=== PATIENT | female | born 1975 | race Caucasian/White ===

== ENCOUNTER → 2017-11-01 15:41 | Outpatient (CLI) | payer BC, SELFPAY ==
--- NOTE | 2017-11-01 14:30 | BRBX_PTH ---
PATIENT: LIZETTE BLEDSOE LOC: [facility] U#:[id number] AGE/SX: 49/F ROOM: RE11/01/[address]: Dr. Kim Monique MD : 1975 BED: DIS: SPEC #: [id number] RECD: 11/01/17 15:27 STATUS: SHASTA MAGALIE #: [id number] TACO: 11/01/17 14:[address]: Kim Monique DEPT: SURGICAL PATHOLOGY RECD BY: Demario Bales ENTERED: 11/02/17 08:57 SP TYPE: BREAST BX OTHR DR: Dr. Dc Coronel MD Tissues: Left breast, NOS Procedures: Surgery Specimen Level IV HEADER OPERATION: Ultrasound-guided left breast needle core biopsy PRE-OP DIAGNOSIS: Abnormal mammogram breast ultrasound, left TISSUE SUBMITTED: Left breast needle core biopsy ISCHEMIC TIME: 3 minutes MICROSCOPIC DIAGNOSIS Left breast, ultrasound-guided needle core biopsy: Benign epithelial cyst with metaplastic change. No evidence of malignancy. AM:zehra 11/05/17 MICROSCOPIC DESCRIPTION Slides are reviewed. GROSS DESCRIPTION Received in fixative is one container labeled with the patient's name and designated left breast biopsy. The specimen consists of multiple elongated fragments of baez-yellow fibroadipose tissue that in aggregate measure 2.5 x 1.5 x 0.1 cm. The entire specimen is submitted in one cassette. / SJ:zehra 11/02/17 TC:5 CPT: 66563
== END ==
PROVIDERS: Family Provider Family Medicine; PCP Family Medicine; Visit Provider Surgery
DX: R92.8 Other abnormal and inconclusive findings on diagnostic imaging of breast (principal)
CPT/HCPCS: 88305

== ENCOUNTER 2018-08-31 11:04 | Emergency (ER) | payer BC, SELFPAY ==
[2018-08-31 11:04] VITALS: PULSE 118; RESP 16; TEMP 36.8; O2SAT 98; BMI 31.9
--- NOTE | 2018-08-31 11:17 | CT_ITS ---
STUDY: CT BRAIN WITHOUT CONTRAST REASON FOR EXAM: Female, 42 years old. Headaches RADIATION DOSAGE (If Supplied By Facility): CTDIvol = ( 44.99 ) mGy, DLP = ( 779.24 ) mGycm TECHNIQUE: Transaxial CT imaging of the brain was performed without administration of intravenous contrast material. Individualized dose optimization techniques were used for this CT. COMPARISON: None. FINDINGS: Normal soft tissue structures. Normal calvarium. Midline interhemispheric calcifications along the anterior interhemispheric fissure seen. Normal size ventricles and extra-axial spaces for the patient's age. Normal white matter tracts of the cerebral hemispheres. Normal basal ganglia and thalami. Normal brainstem. Normal cerebellum. There is no intracranial hemorrhage. There are no findings of an acute ischemic infarction. Normal visualized paranasal sinuses. CT/Brain/Head without Contrast IMPRESSION: No evidence for acute intracranial hemorrhage, mass effect or acute large territory infarcts. No acute intracranial findings Electronically Signed: Jerzy Briceño, at 12:14 EST Tel , Service support ,
[2018-08-31] MEDS: 0.9% Normal Saline 1,000 ML 1000 ML IV (11:31)
[2018-08-31 11:32] VITALS: BP 147/106; PULSE 96; RESP 15; O2SAT 97
[2018-08-31] MEDS: DiphenhydrAMINE 50 MG/ML Syringe 25 MG IV (11:32)
[2018-08-31] MEDS: Ketorolac 30 MG/ML Syringe IV (11:32)
[2018-08-31] MEDS: Metoclopramide 10 MG/2 ML Vial IV (11:32)
[2018-08-31 11:34] LABS: Absolute Lymphocyte Count 1.87 X10^3/ul (0.83-4.51); Basophil# 0.04 X10^3/uL; Basophil% 0.7 % (0-1); Eosinophils% 3.7 % (0-5); Hematocrit 41.8 % (37-47); Hemoglobin 13.3 g/dl (12.0-15.0); Lymphocyte # 1.87 X10^3/ul (4.0); Lymphocyte % 34.4 % (19-41); Mean Corp Hgb Conc 31.8 g/gl (32-36); Mean Corpuscular Hgb 27.3 pg (27.0-32.0); Mean Corpuscular Volume 85.7 fL (81-99); Mean Platelet Vol. 8.9 fl (6.2-12.0); Monocyte# 0.29 X10^3/uL; Monocyte% 5.3 % (0-10); Neutrophil # 3.03 X10^3/uL (2.7-7.7); Neutrophil % 55.9 % (47-70); Platelet Count 321 K/mm3 (150-450); RBC Distribution Width CV 14.6 % (11.6-14.6); RBC Distribution Width SD 45.7 fl (35.1-43.9); Red Blood Count 4.88 M/mm3 (4.2-5.4); White Blood Count 5.4 K/mm3 (4.4-11.0)
[2018-08-31 11:35] LABS: POSITIVE COUNT NO; POSITIVE DIFFERENTIAL NO; POSITIVE MORPHOLOGY NO
[2018-08-31 11:44] LABS: Anion Gap 7 (5-15); BUN 12 mg/dL (7-18); BUN/Creat Ratio 14.7 RATIO (10-20); Chloride 101 mmol/L (98-107); Creatinine, Serum 0.82 mg/dL (0.55-1.02); EST Glomerular Filtration Rate 82 mL/min (>60); Est Glom Filt Rate - Afr Amer 100 mL/min (>60); Estimated Creatinine Clearance 78.75 ml/min; Glucose 100 mg/dL (74-106); Potassium 3.7 mmol/L (3.5-5.1); Sodium Level 138 mmol/L (136-145)
--- NOTE | 2018-08-31 12:24 | ED.DCSUM_ITS ---
- ER Visit Summary Date of Service: 08/31/18 Chief Complaint: [Headache] History of Present Illness: The patient is a 42 F [presents with a headache that started initially 3 days ago. Patient states that initially her headache was more frontal and felt like a sinus type headache but she did not have any fever or sinus drainage. Patient states the headache then seem to moved to the right side of her head. Patient has a continuous discomfort with intermittent sharp stabbing pains to the right side of her head. Patient had some nausea initially when her symptoms started. Patient not had any vomiting. She has not had any falls or head injuries. She has no concerns for carbon monoxide in the home and nobody else at home has headaches. Patient denies any photophobia. Patient does have history of a pituitary tumor and states that a year and a half ago was diagnosed and had an MRI and a CT scan at that time and her chest following it. No family history of brain aneurysms or tumors otherwise.] Physical Examination: [HEENT-PERRLA, EOMI. Cranial nerves II through XII gr ossly intact. TMs clear. Mucous membranes moist. No adenopathy. Cardiovascular-regular rate and rhythm without murmur or ectopy Lungs-clear to auscultation, chest wall stable without crepitus or subcu emphysema Abdomen-normoactive bowel sounds, soft, nontender, no rebound or rigidity, no peritoneal signs. Neuro exam-finger to nose and heel carrillo testing within normal limits, negative Romberg, negative pronator drift, fundi benign Extremities-intact ?4, normal range of motion, normal pulses, atraumatic] Test Results: [CBC with differential is normal. Chemistries were normal. CT scan of the brain without contrast was unremarkable.] Emergency Department Course and Treatment: [Patient was given a liter normal saline fluid bolus as well as Reglan, Benadryl, and Toradol, and her headache resolved.] Treatment Plan: [Patient to follow-up with her primary care physician 3-5 days] Disposition: [Discharged home in stable condition] Impression: [Cephalgia-resolved] This note was generated with [employer] software. It may contain incorrect words, spelling, and punctuation that were not noted in review of the chart prior to signing ED Disposition - Plan for ED Patient: Chief Complaint: Headache Referrals: Dc Coronel MD [Primary Care Provider] -
--- NOTE | 2018-08-31 12:25 | ED.DEP ---
ED Disposition - Plan for ED Patient: Chief Complaint: Headache Instructions: ED Cephalgia Unspecified Referrals: Dc Coronel MD [Primary Care Provider] - 3-5 Days
[2018-08-31 12:40] VITALS: BP 126/77; PULSE 94; RESP 14; O2SAT 95
--- OUTSIDE RECORDS SUMMARY | 2018-12-04 10:13 | XMS RPT_ITS ---
:1975 Author Organization OH[facility] Care Team Providers Name Role Phone PRIYANK NELSON Referring Unavailable REGI DEL RIO Referring Unavailable REGI DEL RIO S Referring Unavailable KIM MONIQUE Attending Unavailable KARLENE RIVERO Referring Unavailable KIM MONIQUE Attending Unavailable KARLENE RIVERO Referring Unavailable MARLY FISHER Attending Unavailable MARLY FISHER Referring Unavailable PRIYANK NELSON Attending Unavailable KARLENE RIVERO Referring Unavailable PRIYANK NELSON Referring Unavailable MARLY FISHER Attending Unavailable MARLY FISHER Referring Unavailable PRIYANK NELSON Referring Unavailable PRIYANK NELSON Attending Unavailable PRIYANK NELSON Referring Unavailable PRIYANK NELSON Referring Unavailable Karlene Rivero Primary Care Unavailable Guanako Bermeo Attending Unavailable Kim Monique Attending Unavailable Kim Monique Referring Unavailable Karlene Rivero Primary Care Unavailable REGI VASQUEZ CNP Attending Unavailable REGI VASQUEZ CNP Referring Unavailable Karlene Rivero Primary Care Unavailable PROBLEMS PROBLEMS DATE TYPE CONDITION / CODE ATTENDING STATUS SOURCE 06/04/2018 Active 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 / [facility] [place] D35.2(ICD-10) Repository 01/16/2018 Active Iron deficiency / NA Active [facility] E61.1(ICD-10) [facility] [place] Repository 01/16/2018 Active Restless legs NA Active [facility] syndrome / [facility] [place] G25.81(ICD-10) Repository 10/31/2017 Active Unknown / NA Active [facility] UNK(Unknown) [facility] [place] Repository 11/15/2011 Active Hypothyroidism, NA Active [facility] unspecified / [facility] [place] E03.9(ICD-10) Repository PROCEDURES PROCEDURES No Procedure Records FoundRESULTS RESULTS DISCHARGE INSTRUCTION Observed: 08/31/2018 Status: F Source: [place] 12:25 PM [facility] REPOSITORY [facility] Medical Records Department [address] [place] [address] Discharge Instruction 08/31/18 1225 MR#: [id number] Acct: [id number] Name: TIANA CARIAS Emmy Rep #: [id number] : 1975 42 From: Guanako Bermeo DO PCP: Karlene Rivero MD Status: REG ER ED Disposition - Plan for ED Patient: Chief Complaint: Headache Instructions: ED Cephalgia Unspecified Referrals: Karlene Rivero MD [Primary Care Provider] - 3-5 Days What to do if you have Problems For any increased pain, shortness of breath, bleeding, nausea or vomiting, chest pain, or any unexpected problems, contact your Primary Care Provider. Call [facility] ([phone]) or report to the closest Emergency Room. Call 911 if necessary. 08/31/18 1225 <Electronically signed by Guanako Bermeo DO> Date Guanako Bermeo DO Cosigner Signature (If Indicated): Date CC: Karlene Rivero MD EMERGENCY DEPARTMENT Observed: 08/31/2018 Status: F Source: [place] SUMMARY 12:24 PM [facility] REPOSITORY [facility] Medical Records Department [address] [place] [address] Emergency Department Summary 08/31/18 1222 MR#: [id number] Acct: [id number] Name: TIANA CARIAS Rep #: [id number] : 1975 42 From: Guanako Bermeo DO PCP: Karleen Rivero MD Status: REG ER - ER Visit Summary Date of Service: 08/31/18 Chief Complaint: [Headache] History of Present Illness: The patient is a 42 F [presents with a headache that started initially 3 days ago. Patient states that initially her headache was more frontal and felt like a sinus type headache but she did not have any fever or sinus drainage. Patient states the headache then seem to moved to the right side of her head. Patient has a continuous discomfort with intermittent sharp stabbing pains to the right side of her head. Patient had some nausea initially when her symptoms started. Patient not had any vomiting. She has not had any falls or head injuries. She has no concerns for carbon monoxide in the home and nobody else at home has headaches. Patient denies any photophobia. Patient does have history of a pituitary tumor and states that a year and a half ago was diagnosed and had an MRI and a CT scan at that time and her chest following it. No family history of brain aneurysms or tumors otherwise.] Physical Examination: [HEENT-PERRLA, EOMI. Cranial nerves II through XII grossly intact. TMs clear. Mucous membranes moist. No adenopathy. Cardiovascular-regular rate and rhythm without murmur or ectopy Lungs-clear to auscultation, chest wall stable without crepitus or subcu emphysema Abdomen-normoactive bowel sounds, soft, nontender, no rebound or rigidity, no peritoneal signs. Neuro exam-finger to nose and heel carrillo testing within normal limits, negative Romberg, negative pronator drift, fundi benign Extremities-intact 4, normal range of motion, normal pulses, atraumatic] Test Results: [CBC with differential is normal. Chemistries were normal. CT scan of the brain without contrast was unremarkable.] Emergency Department Course and Treatment: [Patient was given a liter normal saline fluid bolus as well as Reglan, Benadryl, and Toradol, and her headache resolved.] Treatment Plan: [Patient to follow-up with her primary care physician 3-5 days] Disposition: [Discharged home in stable condition] Impression: [Cephalgia-resolved] This note was generated with [employer] dictation software. It may contain incorrect words, spelling, and punctuation that were not noted in review of the chart prior to signing ED Disposition - Plan for ED Patient: Chief Complaint: Headache Referrals: Karlene Rivero MD [Primary Care Provider] - What to do if you have Problems For any increased pain, shortness of breath, bleeding, nausea or vomiting, chest pain, or any unexpected problems, contact your Primary Care Provider. Call [facility] ([phone]) or report to the closest Emergency Room. Call 911 if necessary. 08/31/18 1224 <Electronically signed by Guanako Bermeo DO> Date Guanako Bermeo DO Cosigner Signature (If Indicated): Date CC: Karlene Rivero MD CBC W/DIFF, AUTOMATED Collected: 08/31/2018 Status: F Source: [place] 11:25 AM [facility] REPOSITORY TYPE CODE TESTS RESULT OUT OF RANGE REFERENCE UNITS LAB L100.1000 4.4-11.0 K/mm3 Normal WBC 5.4 LAB L100.1200 4.2-5.4 M/mm3 Normal RBC 4.88 LAB L100.1300 12.0-15.0 g/dl Normal HGB 13.3 LAB L100.1400 37-47 % Normal HCT 41.8 LAB L100.1500 81-99 fL Normal MCV 85.7 LAB L100.1600 27.0-32.0 pg Normal MCH 27.3 LAB L100.1700 32-36 g/gl Low MCHC 31.8 LAB L100.1810 11.6-14.6 % Normal RDW CV 14.6 LAB L100.1820 35.1-43.9 fl High RDW SD 45.7 LAB L100.1900 150-450 K/mm3 Normal PLT 321 LAB L100.2000 6.2-12.0 fl Normal MPV 8.9 LAB L100.2100 47-70 % Normal NEUT% 55.9 LAB L100.2200 19-41 % Normal LY% 34.4 LAB L100.2300 0-10 % Normal MONO% 5.3 LAB L100.2400 0-5 % Normal EO% 3.7 LAB L100.2500 0-1 % Normal BASO% 0.7 LAB L100.2550 0.0-0.9 % Normal IM GRAN % 0.000 Result Comment: IG% - Immature Granulocytes (promyelocytes, myelocytes and metamyelocytes) > 1% indicates that a LEFT SHIFT is Present. LAB L100.2620 2.0-7.7 X10 3/uL Normal Absolute Neut 3.0 LAB L100.2720 0.83-4.51 X10 3/ul Normal Absolute Lymph 1.87 Performed By: #### L100.0100 #### [facility] [address] [place], [address] BASIC METABOLIC Collected: 08/31/2018 Status: F Source: [place] PROFILE ([facility]) 11:25 AM [facility] REPOSITORY TYPE CODE TESTS RESULT OUT OF RANGE REFERENCE UNITS LAB L501.0100 74-106 mg/dL Normal GLU 100 Result Comment: Fasting Glucose result from 100 to 125 mg/dL suggests IMPAIRED HOMEOSTASIS per A.D.A. criteria. Please note revised GLUCOSE reference range effective 2017. LAB L501.1000 7-18 mg/dL Normal BUN 12 LAB L501.1100 0.55-1.02 mg/dL Normal CREAT,SERUM 0.82 Result Comment: The validity of the calculated GFR AND GFRAA in patients over 70 years has not been determined. Clinical correlation is essential. LAB L501.1110 >60 mL/min Normal EST GFR 82 Result Comment: Non- GFR Calc LAB L501.1115 >60 mL/min Normal EST GFR - AA 100 Result Comment: GFR Calc LAB L501.1255 ml/min Normal Estimated CRCL 78.75 LAB L501.1300 10-20 RATIO Normal BUN/CRE 14.7 LAB L501.2200 8.5-10 mg/dL Normal .1 CA 9.0 LAB L501.5300 136-14 mmol/L Normal 5 NA 138 LAB L501.5600 3.5-5. mmol/L Normal 1 K 3.7 LAB L501.5900 98-107 mmol/L Normal CL 101 LAB L501.6100 21.0-3 mmol/L Normal 2.0 CO2 30.0 LAB L501.6200 5-15 Normal GAP 7 Performed By: #### L500.2500 #### [facility] [address] [facility] [place], [address] BRAIN/HEAD WITHOUT Observed: 08/31/2018 Status: F Source: [place] CONTRAST 11:19 AM [facility] REPOSITORY [facility] Imaging Services [address] [place] [address] Brain/Head without Contrast MR#: [id number] Acct: [id number] Name: JVTIANA R Rep #: [id number] : 1975 F 42 From: Jerzy Briceño MD PCP: Homer BARRAGAN,Karlene Status: REG ER Study: Brain/Head without Contrast Date of Exam: 08/31/18 Exam# [id number] Ordering Dr: Guanako Bermeo DO STUDY: CT BRAIN WITHOUT CONTRAST REASON FOR EXAM: Female, 42 years old. Headaches RADIATION DOSAGE (If Supplied By Facility): CTDIvol = ( 44.99 ) mGy, DLP = ( 779.24 ) mGycm TECHNIQUE: Transaxial CT imaging of the brain was performed without administration of intravenous contrast material. Individualized dose optimization techniques were used for this CT. COMPARISON: None. FINDINGS: Normal soft tissue structures. Normal calvarium. Midline interhemispheric calcifications along the anterior interhemispheric fissure seen. Normal size ventricles and extra-axial spaces for the patient's age. Normal white matter tracts of the cerebral hemispheres. Normal basal ganglia and thalami. Normal brainstem. Normal cerebellum. There is no intracranial hemorrhage. There are no findings of an acute ischemic infarction. Normal visualized paranasal sinuses. CT/Brain/Head without Contrast IMPRESSION: No evidence for acute intracranial hemorrhage, mass effect or acute large territory infarcts. No acute intracranial findings Electronically Signed: Jerzy Briceño, at 12:14 EST Tel , Service support , CC: Karlene Rivero MD; Guanako Bermeo DO Financial Legal Assistant: Signed FREE T4 Collected: 08/27/2018 Status: F Source: [place] 10:35 AM [facility] REPOSITORY TYPE CODE TESTS RESULT OUT OF RANGE REFERENCE UNITS LAB FT4 0.9-1.7 ng/dL Low Free T4 0.8 Performed By: #### FT4, TSH #### [facility] [address] [place], [place] [address] TSH Collected: 08/27/2018 Status: F Source: [place] 10:35 AM [facility] REPOSITORY TYPE CODE TESTS RESULT OUT OF RANGE REFERENCE UNITS LAB TSH 0.400-5.500 uU/mL Low TSH <0.005 Result Comment: If the patient is , TSH reference range varies by gestational period: First Trimester 0.100-2.500 uU/mL Second Trimester 0.200-3.000 uU/mL Third Trimester 0.300-3.000 uU/mL References: 1. De Kellie L, Giovanni M, Uriah EK, et al. Management of Thyroid Dysfunction during and : An Endocrine Society Clinical Practice Guideline. J Clin Endocrinol Metab, 2012:97:0727-7075. 2. Richy MOISE. Overview of thyroid disease in . UpToDate. 2016. Accessed on March 03, 2016. Result rechecked. Performed By: #### FT4, TSH #### [facility] [address] [place], [place] [address] CNPN Observed: 06/25/2018 Status: COMPLETED Source: [place] 12:00 AM [facility] REPOSITORY Telephone ([facility]) JVTIANA ([id number]) 1975 F Date Time Provider Department 06/25/18 MARLY FISHER During your visit today, we recorded the following information about you: Marly Fisher MD 06/25/2018 2:44 PM Signed ----- Message from Priyank Nelson sent at 06/20/2018 7:26 AM EDT ----- Tiana Adkins sent me this message recently. I am going to try giving her T3 (cytomel) even though her TSH continues to be suppressed (suggesting her levothyroxine dose is too high). Telling someone who has struggled to feel good , following all the rules that it'll be at least another 6months till they feel better, is not helpful. You do not seem to hear what I have been saying, and are treating me based on numbers. I don't want to continue with [facility] if it's a waist of my time and money, which if I don't feel good it has been. CT Scans, MRI s, Ultrasounds. Tiny tumors on the pituitary, swollen lymph nodes, and missing periods with no sign of menapose. Inability to loose weight, waking up ready for bed. Yet loving my life. My job my home life. Who I am. But not being able to fully enjoy it because I desperately want to lay down. This needs fixed. If it can't be at [facility] I need to know so I can move on. I'm tired of being tired and weighed down constantly. I am going to need help from your end with her emotional state. Not sure, but she seems to be worsening, and am concerned for her. Thanks. Louie Fisher MD 07/01/2018 11:16 AM Signed Left message on 2 occasions that I was open to further discussion. No return communications from pt. Will ask nurse to reach out. Devon Balderrama RN 07/02/2018 10:20 AM Signed From: Marly Fisher Sent: 07/01/2018 11:16 AM To: Jeremias Zamarripa Devon Pool ----- Message from Marly Fisher sent at 07/01/2018 11:16 AM EDT ----- Could you see if you could contact pt about whether she wants me to call her about concerns? She had seen Dr. Nelson, who gave me an alert about this situation. Doug. Antonia Balderrama RN 07/02/2018 11:03 AM Signed Spoke with pt. She would like to discuss concerns with Dr. Fisher. Pt can be reached at [phone]. Marly Fisher MD 07/02/2018 4:39 PM Signed Pt has been on a new regimen for a few weeks, and today had more equamity about how things were going, than might have been the case a few weeks ago. He has gotten into more airswallowing, but she resolves to get a chin strap. Still taking the iron. Did not want any immediate changes right now. Devon Allergies As of Date: 06/25/2018 (No Known Allergies) Date Reviewed: 01/16/2018 Reviewed by: Bina Marin LPN - Fully Assessed Reason for Visit: Symptom Management [918] Prescriptions as of 06/25/2018 Sig: LIOTHYRONINE 5 MCG TABLET take twice daily, in the morn* DULOXETINE 30 MG CAPSULE,WILL* TAKE ONE CAPSULE BY MOUTH KATHLEEN* BUPROPION XL 300 MG 24 HR TAB TAKE ONE TABLET BY MOUTH EVER* LEVOTHYROXINE 112 MCG TABLET Take 1 tablet by mouth once d* DEXAMETHASONE 1 MG TABLET take 1 pill at 11PM, get bloo* METHYLPHENIDATE 10 MG TABLET Take 1 tablet by mouth DAILY * METHYLPHENIDATE 10 MG TABLET Take 1 tablet by mouth DAILY * LISINOPRIL 20 MG-HYDROCHLOROT* Take 1 tablet by mouth every * LISINOPRIL 20 MG TABLET Take 1 tablet by mouth once d* LACTULOSE 20 GRAM ORAL PACKET Take 20 g by mouth three time* CPAP Initiate Auto PAP @ 5- 20 cm o* HYDROCHLOROTHIAZIDE 25 MG TAB* Take 1 tablet by mouth once d* HYOSCYAMINE 0.125 MG SUBLINGU* Dissolve 1 tablet under the t* Problem List As Of Date 06/25/2018 Noted Resolved Hypothyroidism [E03.9] Hyperlipidemia [E78.5] Depression [F32.9] INVALID FOR* Constipation [K59.00] INVALID FOR* Essential hypertension, benign [I10] INVALID FOR* Vitamin D deficiency [E55.9] INVALID FOR* Obesity [E66.9] INVALID FOR* Bilateral upper abdominal pain [R10.11, R10.12] INVALID FOR* More... KEAGAN (obstructive sleep apnea) AHI 11 [G47.33] INVALID FOR* RLS (restless legs syndrome) [G25.81] INVALID FOR* Iron deficiency concern [E61.1] INVALID FOR* Encounter Status:Closed by MD MARLY FISHER on 07/01/18 SUSANA Observed: 06/10/2018 Status: COMPLETED Source: [place] 12:00 AM [facility] RE[facility]IT[facility] TIANA CARIAS ([id number]) 1975 F Date Time Provider Department 06/10/18 KARLENE RIVERO [employer] During your visit today, we recorded the following information about you: Dorota Sheets Ma 06/10/2018 12:16 PM Signed Last office visit: 07/06/17 F/u scheduled: no follow up Dorota London APRN.CNP 06/10/2018 12:57 PM Signed Probably should get her in for an appt. The following approved medication requests have been transmitted electronically. Signed Prescriptions Disp Refills DULoxetine (CYMBALTA) 30 mg capsule 30 capsule 1 Sig: TAKE ONE CAPSULE BY MOUTH EVERY DAY LIZ: No Authorizing Provider: JL LONDON (PEREZ) buPROPion XL (WELLBUTRIN XL) 300 mg 24 hr tablet 30 tablet 1 Sig: TAKE ONE TABLET BY MOUTH EVERY DAY LIZ: No Authorizing Provider: JL LONDON (PEREZ) GEOVANNA Thomas Ma 06/10/2018 3:18 PM Signed [employer] message sent notifying pt of short term Rx being sent and needing to schedule an appt with PATTERN STAMPER and/or PCP. Samina Arellano Ma Samina Arellano Lesli 06/12/2018 5:08 PM Signed Please see pt's [employer] message from June 12, 2018. She doesn't know which medication were requested and asks which ones they are and feels she shouldn't need to see a third Doctor and will request for them through the others. Samina London APRN.CNP 06/13/2018 7:05 AM Signed I think the refill request came through the automated pharmacy. If she wants to continue with these other providers that is okay, we cant force her to come into the office. Jl London APRN.CNP Allergies As of Date: 06/10/2018 (No Known Allergies) Date Reviewed: 01/16/2018 Reviewed by: Bina Marin LPN - Fully Assessed Reason for Visit: Refill Request [94] Order(s):DULoxetine (CYMBALTA) 30 mg capsuleTAKE ONE CAPSULE BY MOUTH EVERY DAYDisp: 30 capsuleRfl: 1 buPROPion XL (WELLBUTRIN XL) 300 mg 24 hr tabletTAKE ONE TABLET BY MOUTH EVERY DAYDisp: 30 tabletRfl: 1 Prescriptions as of 06/10/2018 Sig: DULOXETINE 30 MG CAPSULE,WILL* TAKE ONE CAPSULE BY MOUTH KATHLEEN* BUPROPION XL 300 MG 24 HR TAB TAKE ONE TABLET BY MOUTH EVER* LEVOTHYROXINE 112 MCG TABLET Take 1 tablet by mouth once d* DEXAMETHASONE 1 MG TABLET take 1 pill at 11PM, get bloo* METHYLPHENIDATE 10 MG TABLET Take 1 tablet by mouth DAILY * METHYLPHENIDATE 10 MG TABLET Take 1 tablet by mouth DAILY * METHYLPHENIDATE 10 MG TABLET Take 1 tablet by mouth DAILY * LISINOPRIL 20 MG-HYDROCHLOROT* Take 1 tablet by mouth every * LISINOPRIL 20 MG TABLET Take 1 tablet by mouth once d* LACTULOSE 20 GRAM ORAL PACKET Take 20 g by mouth three time* CPAP Initiate Auto PAP @ 5- 20 cm o* HYDROCHLOROTHIAZIDE 25 MG TAB* Take 1 tablet by mouth once d* HYOSCYAMINE 0.125 MG SUBLINGU* Dissolve 1 tablet under the t* Problem List As Of Date 06/10/2018 Noted Resolved Hypothyroidism [E03.9] Hyperlipidemia [E78.5] Depression [F32.9] INVALID FOR* Constipation [K59.00] INVALID FOR* Essential hypertension, benign [I10] INVALID FOR* Vitamin D deficiency [E55.9] INVALID FOR* Obesity [E66.9] INVALID FOR* Bilateral upper abdominal pain [R10.11, R10.12] INVALID FOR* More... KEAGAN (obstructive sleep apnea) AHI 11 [G47.33] INVALID FOR* RLS (restless legs syndrome) [G25.81] INVALID FOR* Iron deficiency concern [E61.1] INVALID FOR* Prescriptions ordered this encounter Disp Refills Start End DULOXETINE 30 MG CAPSULE,DELAYED REL* 30 c* 1 06/10/2018 Sig: TAKE ONE CAPSULE BY MOUTH EVERY DAY BUPROPION XL 300 MG 24 HR TAB 30 t* 1 06/10/2018 Sig: TAKE ONE TABLET BY MOUTH EVERY DAY Medications Discontinued During This Encounter DULoxetine (CYMBALTA) 30 mg capsule 30 c* 5 12/10/2017 06/10/2018 Route: ORAL Sig: Take 1 capsule by mouth once daily. Disc: Reason for discontinue is not on file. buPROPion XL (WELLBUTRIN XL) 300 mg * 30 t* 5 12/10/2017 06/10/2018 Route: ORAL Sig: Take 1 tablet by mouth once daily. Disc: Reason for discontinue is not on file. Encounter Status:Closed by SAMINA ARELLANO MA on 06/10/18 PROGRESS Observed: 06/04/2018 Status: COMPLETED Source: [place] 9:12 AM [facility] REPOSITORY O ID: [id number] Author: Priyank Nelson Service: (none) Author Type: Physician Type: Progress Notes Filed: 06/04/2018 9:40 AM Note Text: Assessment / Plan Problem: 1) Hypothyroidism, her fT4 is in high side of normal range, but TSH after 6 months at this dose is profoundly suppressed. I will drop her again down to 112 mcg daily, and recheck in 6 months. If I can get her TSH into normal range and she doesn't feel well, I may try adding small amount of T3 to her regimen. 2) Pituitary incidentaloma, has not yet gotten a followup MRI of the pituitary. 3) KEAGAN, seen by Dr. Jed Fisher, also some more complex history of possibilities of depression, PTSD, history of concussion . She continues to follow with him, which seems like a work in progress. She is frustrated she can't come to a good place in terms of how she feels. Treatment / Plan: 1) decrease levothyroxine ot 112 mcg levothyroxine daily. 2) return in 6 months via Virtual visit, with lab 3) per [employer] message sent after visit, get MRI pituitary done near future. Priyank Neslon MD Data Review: Component Latest Ref Rng AND Units 03/13/2017 Cortisol ug/dL 17.7 FSH mU/mL 8.9 Prolactin 4.5 - 26.8 ng/mL 24.3 LH mU/mL 5.1 Component Ref Rng 05/03/2016 10/30/2016 12/06/2016 03/10/2017 T4 5.5 - 10.2 ug/dL 6.2 6.7 2.7 (L) T4 Uptake 0.91 - 1.19 1.00 0.90 (L) 1.12 FTI 5.3 - 10.8 ug/dL 6.2 7.4 2.4 (L) TSH, 0.400 - 5.500 uIU/mL TSH 0.400 - 5.500 uU/mL 0.588 0.015 (L) 0.009 (L) 0.043 (L) Free T4 0.7 - 1.8 ng/dL 1.4 T3 94 - 170 ng/dL 82 (L) TG Ab <14.4 IU/mL 2.6 Levothyroxine 137 150 137 137 Component Ref Rng 08/13/2017 10/25/2017 05/03/2018 TSH 0.400 - 5.500 uU/mL 0.045 (L) <0.005 (L) <0.005 Free T4 0.9 - 1.7 ng/dL 0.8 (L) 1.8 (H) 1.4 Levothyroxine 137 200 125 Sleep study 03/06/17 Mild KEAGAN, AHI=11.9, O2sat dominique=82% History Problem name: hypothyroidism Quality: in question, carries diagnosis of possible secondary Severity: not sure Duration: since age 25, in 2000, in care Context: 1) KEAGAN, on CPAP, doesn't make her feel any better Modifying factors: 1) levothyroxine 137 mcg daily, no mineral lsupplements, never forgets 2) lactulose monthly Exercise seems to cause exhaustion for several days. Her job involves doing inventory in stores Using CPAP, was hoping this would make her feel better but it has not. On this consistently Keeps on feeling tired. Thinks of it as being timed to when her thyroid hormone level was stopped and she hit bottom. Hasn't felt good since, and is frustrated. ROS Constit: negative for weight change in last year CORTISOL Collected: 06/04/2018 Status: F Source: [place] 8:00 [facility] REPOSITORY TYPE CODE TESTS RESULT OUT OF REFERENCE UNITS RANGE LAB COR ug/dL Cortisol 0.5 Result Comment: Cortisol Reference Range: AM = 5.3-22.5, PM = 3.4-16.8 Performed By: #### COR #### [facility] [address], [place] [address] #### DEXA #### [facility] [address] [place] [id number] [phone] DEXAMETHASONE Collected: 06/04/2018 Status: F Source: [place] 8:00 [facility] REPOSITORY TYPE CODE TESTS RESULT OUT OF REFERENCE UNITS RANGE LAB DEXAMT ng/dL Dexamethasone 254.0 Result Comment: (NOTE) INTERPRETIVE INFORMATION: Dexamethasone, Serum or Plasma by LC-MS/MS Adults baseline: Less than 50 ng/dL 8:00 AM draw following 1 mg dexamethasone between 11:00 pm and 12:00 am the previous evenin - 295 ng/dL 8:00 AM draw following 8 mg dexamethasone (4 x 2 mg doses) between 11:00 pm and 12:00 am the previous evenin - 2850 ng/dL Test developed and characteristics determined by [facility]. See Compliance Statement B: [facility] Performed by [facility], [address] [place] [id number] [email or web address], Jersey Flores MD, Lab. Director Performed By: #### COR #### [facility] [address] [place], [place] [address] #### DEXA #### [facility] [address] [place] [address] [phone] RAYMONDOV Observed: 05/08/2018 Status: COMPLETED Source: [place] 12:40 PM [facility] REPOSITORY Office Visit ([facility]) TIANA CARIAS ([id number]) 1975 F Date Time Provider Department 05/08/18 12:40 PM MARLY FISHER During your visit today, we recorded the following information about you: Pulse Respiration Blood pressure Weight 100/minute 16/minute 147/98 81.6 kg Marly Fisher MD 05/08/2018 1:19 PM Signed [facility] Follow-up/Established patient visit Reason for Visit at [place] : follow up on KEAGAN, RLS, sleepiness Time Out: 1:19 Time In: 1:01 For this visit, a total yqgm-zi-wpjm time with the patient comprised 18 minutes, with at least 50% of that time devoted to qbkl-bi-mqsw counseling and coordination of care, with especial emphasis placed on answering the patient?s and/or family?s questions in a form that they can understand and appreciate. Relevant Medications, allergies, hx Reviewed: yes Date of last visit: 01/16/18 Insurance: [employer] [facility] Location: [place] Psychological/Psychiatric Developments: Still tired somewhat during the day, but with return to PAP treatment, she can get up in the morning, and has gone back to dreaming. Mood has been neutral Feels hungry and blaw all the time. Does not eat all that much. But a bother. Blaw to her she thinks is like a tired thing.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 for 31 days. Earliest Fill Date: 11/05/17 Disc: Reason for discontinue is not on file. Disposition: Return in about 3 months (around 04/18/2018). Follow-up and Disposition History Recorded Encounter Status:Closed by MD MARLY FISHER on 01/18/18 PROGRESS Observed: 11/08/2017 Status: COMPLETED Source: [place] 8:07 PM [facility] [place] REPOSITORY HNO ID: [id number] Author: Kim Monique Service: (none) Author Type: Physician Type: Progress Notes Filed: 11/10/2017 4:33 PM Note Text: NAME: Tiana Carias [facility] NO.: [id number] DATE OF SERVICE: 11/07/2017 : 1975 REFERRING PHYSICIAN: Karlene Rivero MD Tiana is a patient I am following for s/p needle core breast biopsy 11/01/17 The pathology returned as: benign epithelial cyst with metaplastic change, no evidence of malignancy The patient notes slight bruising since the procedure. PMH/PSH - unchanged ROS: denies fevers On examination, the left side breast biopsy site is clean, dry, and intact. There is slight bruising of the site. IMPRESSION: status post left needle core breast biopsy PLAN: If Tiana notes any problems, she should contact me immediately. I reminded her about the importance of self - breast exam. I recommend she perform monthly self breast exams. If any palpable abnormalities, change in breast exam, or any difficulties are noted, she is to contact my office immediately. I generally recommend follow up unilateral mammogram and ultrasound 6 months following biopsy. Diagnoses: (L72.0) Epithelial cyst (primary encounter diagnosis) Return to Clinic: The patient is instructed to follow- up with me in 6 months Kim Monique MD PROCEDURE Observed: 11/03/2017 Status: COMPLETED Source: [place] 5:20 PM [facility] [place] REPOSITORY HNO ID: [id number] Author: Kim Monique Service: (none) Author Type: Physician Type: Procedures Filed: 11/03/2017 5:26 PM Note Text: After informed consent was given and patient gives permission for the procedure, the patient was placed in the supine position. Appropriate time out protocol was followed. The ultrasound transducer was used to localize the lesion and a karlene was made on the patient's left breast skin at the site of the lesion. The left breast was prepped with betadyne skin preparation and sterile surgical drape was placed. The skin and subcutaneous tissue around the breast lesion was infiltrated with 1% xylocaine with epinephrine. A small skin incision was made with an 11 blade scalpel medial to the lesion. The Mammotome Elite device was the positioned into the patient?s breast into the breast lesion and this was confirmed under ultrasound guidance.. Several core samples of breast tissue were then obtained. A marker clip was placed at the biopsy site, and this was confirmed by ultrasound. Hemostasis was achieved by pressure. Steristrips were used to reapproximate the skin. Opsite was then applied. Patient tolerated procedure well. PROGRESS Observed: 11/02/2017 Status: COMPLETED Source: [place] 11:37 AM [facility] REPOSITORY HNO ID: [id number] Author: Kim Monique Service: (none) Author Type: Physician Type: Progress Notes Filed: 11/03/2017 5:26 PM Note Text: Tiana Carias 1975 REFERRING PHYSICIAN: Karlene Rivero MD CHIEF COMPLAINT: Mammogram Abnormality HPI: The patient is a 41 year old female presents with abnormal left breast mammograms/US Denies nipple discharge. Denies palpable breast masses. Denies previous breast biopsies. Had noted right side lateral breast tenderness, found to have right breast cyst. Has breast soreness during menstrual cycles. Mammograms - 6mm asymmetry of left breast US 0.6 cm x 0.5 cm left breast mass; 10:00 posterior depth 6 cm from nipple, right breast with multiple oval cysts PAST MEDICAL HISTORY Diagnosis Date - Constipation - Essential hypertension, benign - Hyperlipidemia - Hypothyroidism - Mental disorder - KEAGAN (obstructive sleep apnea) - Sleep dysfunction with arousal disturbance PAST SURGICAL HISTORY Procedure Laterality Date - DELIVERY ONLY 2005 and 2008 , low transverse - EGD W/O OR W/BRUSH/WASH 03/22/2017 EGD PAST INJURIES Concussion at age 15, right arm fracture in past Current Outpatient Prescriptions: topiramate (TOPAMAX) 25 mg tablet Take 1 tablet by mouth once daily. DULoxetine (CYMBALTA) 20 mg capsule TAKE ONE CAPSULE BY MOUTH EVERY DAY buPROPion XL (WELLBUTRIN XL) 150 mg 24 hr tablet TAKE ONE TABLET BY MOUTH EVERY DAY methylphenidate (RITALIN) 10 mg tablet Take 1 tablet by mouth twice daily for 31 days.Earliest Fill Date: 09/06/17 Phentermine HCl (ADIPEX-P) 37.5 mg capsule Take 1 capsule by mouth once daily. lisinopril-hydrochlorothiazide (PRINZIDE, ZESTORETIC) 20-25 mg per tablet Take 1 tablet by mouth every morning. lisinopril (PRINIVIL) 20 mg tablet Take 1 tablet by mouth once daily. Lactulose (KRISTALOSE) 20 gram packet Take 20 g by mouth three times daily. CPAP Initiate Auto PAP @ 5-20 cm of water with humidification. Mask (per patient preference) optional chin strap (if indicated) , filters, tubing, humidifier and lifetime supplies. hydroCHLOROthiazide (HYDRODIURIL, ESIDRIX) 25 mg tablet Take 1 tablet by mouth once daily. hyoscyamine sublingual (LEVSIN SL) 0.125 mg subl Dissolve 1 tablet under the tongue as needed. May repeat once in 15 minutes, if no improvement. topiramate (TOPAMAX) 25 mg tablet Take 1 tablet by mouth once daily. ALLERGIES: Review of patient's allergies indicates no known allergies. PERSONAL HISTORY: Social History Marital status: Single Spouse name: Years of education: Number of children: 2 Social History Main Topics Smoking status: Former Smoker Packs/day: 0.00 Years: 0.00 Types: Cigarettes Quit date: 12/25/2011 Smokeless status: Never Used Comment: quits smoking off/on Alcohol use: Yes Comment: occasional Drug use: No Sexual activity: Yes Partners with: Male control/protection: None FAMILY HISTORY Problem Relation Age of Onset - Adopted: Yes - Diabetes Father - Hypertension Father - None Father REVIEW OF SYSTEMS: General - denies fevers, complains of increased tiredness Cardiovascular - denies chest pain, denies history of NC Pulmonary - denies shortness of breath Gastrointestinal - has constipation Neurological - takes topamax for migraine headaches, denies seizures, denies history of CVA Genitourinary - denies burning with urination Hematological - denies spontaneous/prolonged bleeding Skin - denies nonhealing skin wounds Musculoskeletal - denies chronic joint/back pain Endocrine - denies diabetes, has hypothryoidism Psychological ? has depressive disorder Obstetrical - menarche onset age 15, Ab1, first at age 30, breast feeding hx 10m/6m, BCP initially at age 18 for about 4y, mirena for about 4y, LMP Alfred - irregular about every 3m PHYSICAL EXAMINATION: General: The patient is 41 year old female, well nourished, well hydrated in no acute distress. The patient is oriented to time, place, and person. VITALS: Blood pressure 152/66, pulse 84, weight 77.1 kg (170 lb). Body mass index is 29.18 kg/(m2). Head ? Normocephalic. EOM intact with sclera clear and no icterus noted. Mouth with mucus membranes moist. Neck - supple with no jugular venous distention noted. Trachea is midline. No carotid bruits noted. No thyroid enlargement or thyroid nodules detected. No masses noted. Chest/breast ? no asymmetry of breasts noted, no suspicious skin lesions noted, no nipple discharge and both nipples everted, nodular dense breast tissue palpated bilaterally, no suspicious lesions palpated Lungs ? clear to auscultation. Normal breath sounds. No rales/rhonchi/wheezing noted. No labored breathing noted, such as retractions. Heart ? normal S1 and S2 auscultated. No rubs/clicks/murmurs noted. Regular rate. Abdomen ? soft and benign. Normal bowel soundss. No abdominal bruits noted. No distention or tympany noted. Extremities ? no calf tenderness noted. No pitting edema noted. Skin ? normal skin integrity. Lymph ? no cervical adenopathy detected, no supraclavicular adenopathy detected, no axillary adenopathy detected Neurological ? gait normal, no focal deficits noted Psych ? calm and appropriate RADIOLOGIC STUDIES: As Noted IMPRESSION: mammographic abnormality, abnormal US of left breast PLAN: I have discussed the above with the patient. I have offered US guided left breast needle core biopsy. I have explained the procedure to the patient. I have counseled the patient as to the risks of the procedure, including but not limited to: infection, bleeding, injury to any blood vessels/nerves, scar tissue, wound infections, complications of anesthesia, etc. ? the patient understands. The patient wishes to proceed. I have answered all questions to the patient?s satisfaction and the patient has no further questions. Greater than 50% of this patient encounter was dedicated to face to face discussion with the patient. . Diagnoses: (R92.8) Abnormal mammogram (primary encounter diagnosis) (R92.8) Abnormal ultrasound of breast Patient tolerated procedure well. Follow up next week for wound check and discussion of results. Kim Monique MD BREAST BIOPSY Observed: 11/01/2017 Status: F Source: [place] ([place] 2:30 PM [facility] REPOSITORY Patient: TIANA CARIAS : 1975 (42/F) Acct Num: [id number] Phys: Kayden BARRAGAN,Kim Unit Num: [id number] Loc: [facility]SPEC Specimen: [id number] Received: 11/01/171526 Spec Type: BREAST BX TISSUES TISSUES: Left breast, NOS GROSS DESCRIPTION Received in fixative is one container labeled with the patient's name and designated left breast biopsy. The specimen consists of multiple elongated fragments of baez-yellow fibroadipose tissue that in aggregate measure 2.5 x 1.5 x 0.1 cm. The entire specimen is submitted in one cassette. / SJ:zehra 11/02/17 TC:5 CPT: 81508 HEADER OPERATION: Ultrasound-guided left breast needle core biopsy PRE-OP DIAGNOSIS: Abnormal mammogram breast ultrasound, left TISSUE SUBMITTED: Left breast needle core biopsy ISCHEMIC TIME: 3 minutes MICROSCOPIC DESCRIPTION Slides are reviewed. MICROSCOPIC DIAGNOSIS Left breast, ultrasound-guided needle core biopsy: Benign epithelial cyst with metaplastic change. No evidence of malignancy. AM:zehra 11/05/17 Signed Rodrick Martines 11/05/17 <signature on file> Performed By: #### PBRBX #### [facility] [place], [address] PROGRESS Observed: 11/01/2017 Status: COMPLETED Source: [place] 2:24 PM [facility] REPOSITORY HNO ID: [id number] Author: Sindy Alexandre RN Service: (none) Author Type: (none) Type: Progress Notes Filed: 11/03/2017 5:26 PM Note Text: UNIVERSAL PROTOCOL / SAFETY CHECKLIST Procedure to be performed: Ultrasound guided left breast needle core biopsy Sign in Communication: Completed Time Out: Team Confirms the Correct Patient, Correct Procedure, Correct Site and Site Marking, Correct Position (if applicable), Prep and Dry Time (if applicable). Time: 1425 Affirmation of Time Out: YES Sign Out Discussion: Completed Sinyd Alexandre RN CNCO Observed: 10/31/2017 Status: COMPLETED Source: [place] 9:54 AM [facility] REPOSITORY HNO ID: [id number] Author: Mammography Coordinator Service: (none) Author Type: Physician Type: Letter Filed: 11/01/2017 11:31 PM Note Text: October 31, 2017 PID: [id number] Tiana Carias [address] [address] Dear Ms. Carias, Your recent breast imaging exam on 10/31/2017 showed an abnormal area. At this time we recommend further evaluation. This does not necessarily mean that there is a serious problem in your breast, but it should not be ignored. Please contact your physician as soon as possible to discuss the results of this exam and decide what the next steps in your medical care should be. If you have already been notified of these findings, please disregard this letter. Thank you for allowing us to help in meeting your health care needs. Sincerely, Dr. Reno Interpreting Radiologist [facility] (Abnormal) YAKOV US BREAST LTD Observed: 10/31/2017 Status: F Source: [facility] 9:39 AM [facility] REPOSITORY * * *Final Report* * * DATE OF EXAM: Oct 31 2017 9:39AM [facility] 0593 - [employer] US BREAST LTD LT / PROCEDURE REASON: bilateral diagnostic and right palpable right lump * * * * Physician Interpretation * * * * #[id number] - YAKOV US BREAST LTD LT ULTRASOUND OF LEFT BREAST: 10/31/2017 HISTORY: Bilateral Diagnostic And Right Palpable Right Lump left us also. RESULT: No prior exams were available for comparison. Real-time ultrasound of the left breast was performed. There is a 0.6 cm x 0.3 cm x 0.5 cm oval mass with a circumscribed margin in the left breast at 10 o'clock posterior depth 6 cm from the nipple. This oval mass is hypoechoic with a well-defined boundary and internal echoes. This correlates with mammography findings. Color flow imaging demonstrates that there is no vascularity present. IMPRESSION: SUSPICIOUS FINDING - BIOPSY SHOULD BE CONSIDERED - FOLLOW-UP RECOMMENDED The 0.6 cm x 0.3 cm x 0.5 cm oval mass in the left breast is suspicious of malignancy. An ultrasound guided biopsy is recommended. Maryam amaya/marli:10/31/2017 09:54:45 Special Education Professional: Silvia Paul [facility] letter sent: Abnormal Ultrasound BI-RADS: 4 Suspicious finding - Biopsy should be considered Financial Legal Assistant: Marli Transcribe Date/Time: Oct 31 2017 9:39A Dictated by : MARYAM RENO MD This examination was interpreted and the report reviewed and electronically signed by: MARYAM RENO MD on Oct 31 2017 9:54AM EST [id number] [facility] [employer] [place] Observed: 10/31/2017 Status: F Source: [place] RT 9:21 AM [facility] REPOSITORY * * *Final Report* * * DATE OF EXAM: Oct 31 2017 9:21AM [facility] 0594 - [employer] RT / PROCEDURE REASON: bilateral diagnostic and right palpable right lump * * * * Physician Interpretation * * * * #[id number] - [facility] [employer] BREAST [employer] RT ULTRASOUND OF RIGHT BREAST: 10/31/2017 HISTORY: Bilateral Diagnostic And Right Palpable Right Lump. RESULT: No prior exams were available for comparison. Real-time ultrasound of the right breast was performed. There is a benign cluster of 5 mm to 1.5 cm oval cysts in the right breast superior lateral quadrant posterior depth. This cluster of 5 mm to 1.5 cm oval cysts is anechoic with well-defined boundaries. These correlate as palpated and with mammography findings. Color flow imaging demonstrates that there is no vascularity present. IMPRESSION: BENIGN FINDING There is no sonographic evidence of malignancy. The cluster of 5 mm to 1.5 cm oval cysts in the right breast is consistent with a simple cyst and is benign. Maryam amaya/marli:10/31/2017 09:53:37 Special Education Professional: Silvia Paul [facility] Ultrasound BI-RADS: 2 Benign finding Financial Legal Assistant: Marli Transcribe Date/Time: Oct 31 2017 9:07A Dictated by : MARYAM RENO MD This examination was interpreted and the report reviewed and electronically signed by: MARYAM RENO MD on Oct 31 2017 9:53AM EST [id number] PROGRESS Observed: 10/31/2017 Status: COMPLETED Source: [place] 8:58 AM [facility] REPOSITORY HNO ID: [id number] Author: Anna Don Service: (none) Author Type: (none) Type: Progress Notes Filed: 10/31/2017 9:57 AM Note Text: Radiology Service Progress Note PATIENT NAME: Tiana Carias DATE OF SERVICE: October 31, 2017 TIME: 8:59 AM PATIENT IDENTITY VERIFICATION COMPLETED USING TWO (2) METHODS: Patient confirmed name verbally and Date of . PATIENT GENDER DATA: Female. status: : No status: NO. PATIENT RELEVANT IMPLANT DATA REVIEWED: Yes RADIOLOGY DEPARTMENT: Ultrasound PERIPHERAL IV DATA: Not applicable SIGNED BY: Anna Don October 31, 2017 8:59 AM [facility] DIAGNOSTIC GEO Observed: 10/31/2017 Status: F Source: [place] 8:41 AM [facility] REPOSITORY * * *Final Report* * * DATE OF EXAM: Oct 31 2017 8:41AM [facility] 0620 - [facility] DIAGNOSTIC GEO / PROCEDURE REASON: bilateral diagnostic and right palpable right lump * * * * Physician Interpretation * * * * RESULT: #[id number] - [facility] DIAGNOSTIC GEO BILATERAL DIGITAL DIAGNOSTIC MAMMOGRAM WITH CAD: 10/31/2017 HISTORY: Bilateral Diagnostic And Right Palpable Right Lump. RESULT: TECHNIQUE: The study was acquired using full field digital technology and interpreted from soft copy. Current study was also evaluated with a Computer Aided Detection (CAD). No prior exams were available for comparison. The tissue of both breasts is extremely dense, which lowers the sensitivity of mammography. There is a 1.2 cm reniform asymmetry in the right breast posterior depth superior region seen on the mediolateral oblique view only. This correlates as palpated. There is a 6 mm oval asymmetry in the left breast middle depth medial region seen on the craniocaudal view only. No other significant masses or calcifications are seen in either breast. IMPRESSION: INCOMPLETE: NEEDS ADDITIONAL IMAGING EVALUATION The 1.2 cm reniform asymmetry in the right breast posterior depth superior region seen on the mediolateral oblique view only resembles clustered cysts and is benign. The 6 mm oval asymmetry in the left breast middle depth medial region seen on the craniocaudal view only is indeterminate. An ultrasound is recommended. Maryam amaya/marli:10/31/2017 09:52:10 Special Education Professional: Nupur Guevara RT(R)(M), [facility] Mammogram BI-RADS: 0 Incomplete: needs additional imaging evaluation Financial Legal Assistant: Marli Transcribe Date/Time: Oct 31 2017 8:41A Dictated by: MARYAM RENO MD This examination was interpreted and the report reviewed and electronically signed by: MARYAM RENO MD on Oct 31 2017 9:52AM EST [id number] T4 Collected: 10/25/2017 Status: F Source: [place] 11:15 AM [facility] REPOSITORY TYPE CODE TESTS RESULT OUT OF RANGE REFERENCE UNITS LAB FT4 0.9-1.7 ng/dL High Free T4 1.8 Performed By: #### FT4, TSH #### [facility] [address] [id number] TSH Collected: 10/25/2017 Status: F Source: [place] 11:15 AM [facility] REPOSITORY TYPE CODE TESTS RESULT OUT OF RANGE REFERENCE UNITS LAB TSH 0.400-5.500 uU/mL Low TSH <0.005 Result Comment: Result rechecked. Performed By: #### FT4, TSH #### [facility] [address] [id number] ALLERGIES ALLERGIES DATE TYPE / CODE NAME / CODE REACTION SEVERITY SOURCE 08/31/2018 Drug No Known Unknown [facility] Allergy/416 Allergies/K54797 Hospital 027915(SNOM 0388(RXNORM) Repository ED CT) Drug NO KNOWN [facility] Class/13816 ALLERGIES Main [place] 1003(SNOMED Repository CT) ENCOUNTERS ENCOUNTERS ADMIT/DISCHARGE ACCOUNT ADMITTING ENCOUNTER LOCATION SOURCE NUMBER CLASS 08/31/2018/08/31/20 [id number] Emergency [address] ing:ED Repository 08/27/2018/08/27/20 [id number] Ambulatory [address] [place] Repository 06/04/2018/06/05/20 [id number] Ambulatory [address] [place] Repository 06/04/2018/06/04/20 [id number] Ambulatory [address] [place] Repository 05/08/2018/05/09/20 [id number] Ambulatory [address] [place] Repository 05/03/2018/05/03/20 [id number] Ambulatory [address] Repository 01/29/2018/01/31/20 [id number] Ambulatory [address] Repository 01/16/2018 [id number] Ambulatory [facility] Repository 01/16/2018/01/19/20 [id number] Ambulatory [address] Repository 11/07/2017/11/07/19 [id number] Ambulatory [address] Repository 11/01/2017 [id number] Ambulatory [facility] ing:[facility] Repository 11/01/2017/11/01/19 [id number] Ambulatory [address] Repository 10/31/2017/10/31/19 [id number] Ambulatory [address] Repository 10/31/2017/10/31/19 [id number] Ambulatory [address] Repository 10/25/2017/10/25/19 [id number] Ambulatory [address] Repository 10/24/2017 [id number] [facility] ing:[facility] Repository PAYERS PAYERS ENCOUNTER GUARANTOR PAYER SUBSCRIBER SOURCE 08/31/2018 TIANA R Primary TIANA [place] [id number] JACKY Insurance:[employer] [employer] NANCY: [facility] Number: [id number] Hospital [id number]: (778) [id number] Repository [phone] () jairon Date:[id number] [id number] [place] [address] [id number]: 08/31/2018 Secondary NOT GIVENUNK [place] Insurance:SELF PAY [facility] Number: Effective Repository Date:2018-08-31 11/01/2017 Tiana R Primary Tiana R [place] [id number] Jacky Insurance:ANTHEMPolic QuinnDOB: [facility] [place] Number: [id number] Hospital [id number]: 330 [id number] Repository [phone] () jairon Date:[id number] [id number] [place] [address] [id number]: 11/01/2017 Secondary NOT GIVENUNK [place] Insurance:SELF PAY [facility] Number: Effective Repository Date:2017-11-01 10/24/2017 Tiana R Primary Tiana R [place] [id number] Jacky Insurance:ANTHEMPolic QuinnDOB: [facility] [place] [place] Number: [id number] Hospital [id number]: ([phone] [id number] Repository [phone] () jairon Date:[id number] [address]UNSYGV[address] [place] [id number]: 10/24/2017 Secondary NOT GIVENUNK [place] Insurance:SELF PAY [facility] Number: Effective Repository Date:2017-10-22
== END 2018-08-31 12:42 | disposition home or self-care (01) ==
LOC: ED 11:48
PROVIDERS: Emergency Provider Emergency Medicine; Family Provider Family Medicine; PCP Family Medicine
DX: R51 Headache (principal); R11.0 Nausea; I10 Essential (primary) hypertension; E03.9 Hypothyroidism, unspecified; F32.9 Major depressive disorder, single episode, unspecified; Z79.899 Other long term (current) drug therapy
CPT/HCPCS: 70450; 80048; 85025; 96361; 96374; 96375; 99284; J7030